=== PATIENT | female | born 1955 | race Caucasian/White ===

== ENCOUNTER → 2017-07-23 | Outpatient (CLI) | payer BC, OTHER ==
[~2017-07-23] MED LIST: ACCUNEB SO1.25 MG/1; AMBIEN 5 MG TABL5 M1 PO; CARAFATE 1 GM TA1 G1 PO; CIPRO500 MG PO; ENOXAPARIN100 MG/11 SUBQ; FUROSEMIDE 20 M20 M1 PO; IRON325 PO; LIORESAL 10 MG10 MG PO; METOLAZONE 2.52.5 M1 PO; MIRALAX17 GM PO; MULTIVITAMINS PO; NORCO 5-325 TA1 EACH PO; ONDANSETRON HCL4 M2 PO; POTASSIUM20 MEQ/15 PO; PROTONIX40 M1 PO; TRAMADOL 50 MG50 MG PO; TYLENOL325 MG PO; XELODA500 MG PO; ZANTAC 150MG T150 MG PO
[2017-07-23 10:30] VITALS: BP 121/66
[2017-07-23 11:03] VITALS: BP 107/55; BP 112/59
[2017-07-23 14:09] VITALS: BP 121/66
== END ==
LOC: OPONC 06:26
DX: C18.7 Malignant neoplasm of sigmoid colon (principal); D63.8 Anemia in other chronic diseases classified elsewhere
CPT/HCPCS: 91030